=== PATIENT | female | born 1945 | race Caucasian/White ===

== ENCOUNTER 2019-02-11 05:03 | Inpatient (IN) | payer MEDICARE, BC ==
[2019-02-04 14:59] LABS: BASOPHILS % (AUTO) 0.8 % (0-1); EOSINOPHILS # (AUTO) 0.1 X10'3 (0-0.9); EOSINOPHILS % (AUTO) 1.9 % (0-6); LYMPHOCYTES # (AUTO) 1.6 X10'3 (1.1-4.8); LYMPHOCYTES % (AUTO) 36.7 % (21-51); MEAN CORPUSCULAR HEMOGLOBIN 31.3 PG (27.0-31.0); MEAN CORPUSCULAR VOLUME 91.9 FL (78-98); MEAN PLATELET VOLUME 7.9 FL (7.4-10.4); MONOCYTES # (AUTO) 0.4 X10'3 (0-0.9); NEUTROPHILS # (AUTO) 2.3 X10'3 (1.8-7.7); NEUTROPHILS % (AUTO) 52.6 % (42-75); PRE OP PLATELET COUNT 186 X10'3 (140-440); RED BLOOD COUNT 4.46 X10'6 (4.20-5.60)
[2019-02-04 15:17] LABS: ALBUMIN/GLOBULIN RATIO 1.3 (1.1-1.5); ALKALINE PHOSPHATASE 64 IU/L (46-116); BLOOD UREA NITROGEN 21 MG/DL (7-18); BUN/CREATININE RATIO 26.9 (6.6-38.0); CALCIUM 9.6 MG/DL (8.5-10.1); CHLORIDE 103 MMOL/L (99-107); CREATININE 0.78 MG/DL (0.40-0.90); PRE OP ALT 29 U/L (30-65); PRE OP ANION GAP 10 (8-16); PRE OP AST 23 U/L (10-37); PRE OP BILIRUB, TOTAL 0.6 MG/DL (0.0-1.0); PRE OP GLUCOSE 89 MG/DL (70-104); PRE OP POTASSIUM 4.2 MMOL/L (3.4-5.1); PRE OP SODIUM 142 MMOL/L (135-145); TOTAL CARBON DIOXIDE 29.2 MMOL/L (24-32); TOTAL PROTEIN 7.1 G/DL (6.4-8.2); eGFR 73 ML/MIN
[2019-02-11] VITALS (20 sets, daily range): BP systolic 84–123; BP diastolic 44–73
[~2019-02-11] VITALS: Ht 170.2 cm; Wt 88.2 kg
[~2019-02-11 05:03] MED LIST: CELE200C PO; KEN0.1O TP; MULT1TAB74 PO; PREVCR VG; TRAM50TA2 PO; TURMERIC; [UNRECOGNIZED DRUG - OTHER]
[2019-02-11] MEDS ORDERED: famotidine 20mg tablet PO ONE (05:30)
[2019-02-11] MEDS ORDERED: vancomycin inj 1,500 MG in normal saline 300ml IV soln IV ONE (05:30)
[2019-02-11] MEDS ORDERED: tranexamic acid inj. 1,000 MG in normal saline 100 ML IV ONE (05:30)
[2019-02-11] MEDS ORDERED: cefazolin/dext.iso 2gm/100ml 100 ML IV ONE (05:30)
[2019-02-11] MEDS ORDERED: acetaminophen 325mg tablet PO ONE (05:30)
[2019-02-11] MEDS ORDERED: celeCOXIB 100mg capsule PO ONE (05:30)
[2019-02-11] MEDS ORDERED: oxyCODONE SR 10mg (sust. release) tab -2 tabs (20mg) PO ONE (05:30)
[2019-02-11] MEDS ORDERED: gabapentin 300mg capsule PO ONE (05:30)
[2019-02-11] MEDS ORDERED: metoclopramide 5 mg/ml inj IV ONE (05:30)
[2019-02-11] MEDS ORDERED: LIDOcaine 1% (10mg/ml) 2ml vial ONE (05:47)
[2019-02-11] MEDS: ringers solution, lacted 1,000 ML IV SCH ×3 (06:06→13:26)
[2019-02-11] MEDS ORDERED: oxyCODONE/APAP 10/325mg tablet PO PRN (06:20)
[2019-02-11] MEDS ORDERED: magnesium hydroxide 30ml (MOM) UD suspension PO PRN (06:20)
[2019-02-11] MEDS ORDERED: bisacodyl 10mg suppository rectal RC PRN (06:20)
[2019-02-11] MEDS ORDERED: HYDROmorphone inj. 0.5 MG/0.5 ML DISP.SYRIN IV PRN (06:20)
[2019-02-11] MEDS ORDERED: tranexamic acid inj. 880 MG in normal saline 100ml IV soln 100 ML IV ONE (06:20)
[2019-02-11] MEDS ORDERED: acetaminophen 325mg tablet PO PRN (06:20)
[2019-02-11] MEDS ORDERED: diphenhydrAMINE 25mg capsule PO PRN ×2 (06:20)
[2019-02-11] MEDS ORDERED: tetracaine 1% (10mg/ml) pres. free inj. ONE (07:49)
[2019-02-11] MEDS ORDERED: MIDAZolam 1mg/ml 10ml vial ONE (07:51)
[2019-02-11] MEDS: gabapentin 300mg capsule PO SCH ×3 (08:00→20:36)
[2019-02-11] MEDS ORDERED: propofol inj 20 ML IV ONE (08:23)
[2019-02-11] MEDS ORDERED: ketorolac trometh. 30mg/ml inj. ONE ×2 (08:33→08:55)
[2019-02-11] MEDS ORDERED: vancomycin 1,000mg inj ONE (08:33)
[2019-02-11] MEDS ORDERED: epiNEPHrine 1 mg/ml inj ONE ×2 (08:33→08:56)
[2019-02-11] MEDS ORDERED: cloNIDine hcl/PF 100mcg/ml inj ONE ×2 (08:33→08:56)
[2019-02-11] MEDS ORDERED: ROPIVAcaine 0.5% (5mg/ml) 30ml vial ONE ×3 (08:34→09:25)
[2019-02-11] MEDS ORDERED: morphine 4 MG/ML inj SYRINge IV PRN ×2 (08:45)
[2019-02-11] MEDS ORDERED: ringers solution, lacted 1,000 ML IV SCH (08:45)
[2019-02-11] MEDS ORDERED: proCHLORperazine 10 MG/2 ml inj IV PRN (08:45)
[2019-02-11] MEDS ORDERED: meperidine/PF 25mg/ml syringe IV PRN ×3 (08:45)
[2019-02-11] MEDS ORDERED: ondansetron/PF 4mg/2ml inj IV PRN (08:45)
--- NOTE | 2019-02-11 09:50 | NUR ---
Received from OR via , accompanied by Anesthesiologist OSWALDO and report given by Anesthesiolgist. AWAKE VS WNL, NO CO PAIN, DSG DI, HAS KNEE WRAP ON AND TEJ DSG, (BOX NOT TUCKED INTO WRAP), HAS ON-Q PUMP, FOOT WARM WITH GOOD PEDAL PULSES, SCDS ON, ELIZABETH SECURE WITH CLEAR YELLOW URINE. BEGINING TO MOVE BLE.
[2019-02-11] MEDS: ROPIVAcaine 0.2%/PF PUMP/bolus 550 ML ADDCANAL SCH ×2 (11:17→20:44)
--- NOTE | 2019-02-11 11:30 | NUR ---
Report called to receiving nurse. Transferred via BED Belongings . Special Issues communicated to receiving nurse.AWAKE VS WNL, NO CO PAIN, ON-Q PUMP ON 2ML, BEGINING TO MOVE BLE, PEDAL PULSE GOOD, ELIZABETH QS CLEAR YELLOW, TEJ DSG DI, XRAY DONE, TO ROOM
[2019-02-11] MEDS: potassium cl 20mEq in 1/2 NS 1,000 ML IV SCH ×2 (13:12→14:20)
[2019-02-11] MEDS: multivitamins, therapeutics tablet PO SCH (13:20)
[2019-02-11] MEDS: ascorbic acid 500mg tablet PO SCH ×2 (13:21→20:35)
[2019-02-11] MEDS: aspirin 325mg tablet PO SCH (13:21)
[2019-02-11] MEDS: cefazolin/dext.iso 2gm/100ml 100 ML IV SCH (15:45)
--- NOTE | 2019-02-11 18:22 | NUR ---
Problems reprioritized. Patient report given, questions answered & plan of care reviewed with SARAH James.
[2019-02-11] MEDS: ondansetron/PF 4mg/2ml inj IV PRN (20:35)
[2019-02-11] MEDS: HYDROmorphone 1 mg/ml syringe IV PRN (20:35)
[2019-02-11] MEDS: sennosides 8.6mg tablet PO SCH (20:35)
[2019-02-11] MEDS: ROPIVAcaine 0.2% (10 MG/5 ML) BOLUS INJECTION ADDCANAL PRN (20:44)
[2019-02-12] MEDS: cefazolin/dext.iso 2gm/100ml 100 ML IV SCH (00:07)
[2019-02-12] MEDS: potassium cl 20mEq in 1/2 NS 1,000 ML IV SCH ×4 (00:09→21:59)
[2019-02-12] MEDS: HYDROmorphone 1 mg/ml syringe IV PRN (00:09)
[2019-02-12] MEDS: ROPIVAcaine 0.2%/PF PUMP/bolus 550 ML ADDCANAL SCH ×2 (00:20→04:45)
[2019-02-12] MEDS: ROPIVAcaine 0.2% (10 MG/5 ML) BOLUS INJECTION ADDCANAL PRN ×2 (00:20→04:45)
[2019-02-12 02:00] VITALS: BP 126/66
[2019-02-12] MEDS: oxyCODONE/APAP 10/325mg tablet PO PRN ×4 (04:36→21:48)
[2019-02-12] MEDS: ringers solution, lacted 1,000 ML IV SCH (05:53)
[2019-02-12 06:00] VITALS: BP 109/48
--- NOTE | 2019-02-12 06:25 | NUR ---
received report from bo hodges
[2019-02-12 06:29] LABS: BASOPHILS % (AUTO) 0.6 % (0-1); EOSINOPHILS # (AUTO) 0.1 X10'3 (0-0.9); EOSINOPHILS % (AUTO) 2.9 % (0-6); HEMATOCRIT 33.4 % (35.0-45.0); HEMOGLOBIN 11.5 g/dl (12.0-16.0); LYMPHOCYTES % (AUTO) 24.4 % (21-51); MEAN CORPUSCULAR HEMOGLOBIN 31.6 PG (27.0-31.0); MEAN CORPUSCULAR HGB CONC 34.3 g/dL (33.0-36.5); MEAN CORPUSCULAR VOLUME 92.1 FL (78-98); MEAN PLATELET VOLUME 8.1 FL (7.4-10.4); MONOCYTES # (AUTO) 0.4 X10'3 (0-0.9); MONOCYTES % (AUTO) 9.7 % (2-12); NEUTROPHILS # (AUTO) 2.6 X10'3 (1.8-7.7); NEUTROPHILS % (AUTO) 62.4 % (42-75); PLATELET COUNT 149 X10'3 (140-440); RED BLOOD COUNT 3.63 X10'6 (4.20-5.60); RED CELL DISTRIBUTION WIDTH 13.5 % (11.5-14.5); WHITE BLOOD COUNT 4.1 X10'3 (4.5-11.0)
--- NOTE | 2019-02-12 06:42 | NUR ---
Patient in room [facility] 4015. I have received report from Carol Vera RN and had the opportunity to ask questions and assume patient care.
--- NOTE | 2019-02-12 06:43 | NUR ---
REPORT GIVEN TO SARAH ARSHAD.
[2019-02-12 07:40] LABS: ANION GAP 8 (8-16); CHLORIDE 107 MMOL/L (99-107); POTASSIUM 4.2 MMOL/L (3.5-5.1); SODIUM 141 MMOL/L (135-145); TOTAL CARBON DIOXIDE 25.7 MMOL/L (24-32)
[2019-02-12] MEDS: multivitamins, therapeutics tablet PO SCH (07:53)
[2019-02-12] MEDS: gabapentin 300mg capsule PO SCH ×3 (07:53→21:58)
[2019-02-12] MEDS: ascorbic acid 500mg tablet PO SCH ×2 (07:53→21:45)
[2019-02-12] MEDS: aspirin 325mg tablet PO SCH (07:54)
[2019-02-12 10:00] VITALS: BP 108/54
[2019-02-12 14:00] VITALS: BP 120/64
--- NOTE | 2019-02-12 16:05 | NUR ---
Pt s/p surgery to her right knee seen at bedside with daughter present and provided with written and verbal protein education with RD contact information. Pt endorses a good appetite and reports about 80-85% PO intake on regular diet meeting nutrient needs. Pt denies additional protein at this time. Pt denies food allergies or difficulty chewing/swallowing. LBM 02/10, pt reports she took prune juice today and denies any additional nutrition therapy at this time. Will continue to follow. Addendum: 02/12/19 at [address] Amended: Links added.
[2019-02-12 18:00] VITALS: BP 107/51
--- NOTE | 2019-02-12 18:32 | NUR ---
gave report to bo mosqueda
[2019-02-12] MEDS: celeCOXIB 100mg capsule PO SCH (21:45)
[2019-02-12] MEDS: sennosides 8.6mg tablet PO SCH (21:45)
[2019-02-12 22:00] VITALS: BP 131/63
[2019-02-13] MEDS: ondansetron/PF 4mg/2ml inj IV PRN (01:52)
[2019-02-13] MEDS: oxyCODONE/APAP 10/325mg tablet PO PRN ×3 (04:09→13:44)
[2019-02-13 05:56] LABS: BASOPHILS % (AUTO) 0.3 % (0-1); EOSINOPHILS % (AUTO) 0.8 % (0-6); HEMATOCRIT 33.2 % (35.0-45.0); HEMOGLOBIN 11.4 g/dl (12.0-16.0); LYMPHOCYTES # (AUTO) 0.8 X10'3 (1.1-4.8); LYMPHOCYTES % (AUTO) 14.1 % (21-51); MEAN CORPUSCULAR HEMOGLOBIN 31.3 PG (27.0-31.0); MEAN CORPUSCULAR HGB CONC 34.4 g/dL (33.0-36.5); MEAN CORPUSCULAR VOLUME 90.8 FL (78-98); MEAN PLATELET VOLUME 8.2 FL (7.4-10.4); MONOCYTES # (AUTO) 0.5 X10'3 (0-0.9); MONOCYTES % (AUTO) 9.1 % (2-12); NEUTROPHILS # (AUTO) 4.1 X10'3 (1.8-7.7); NEUTROPHILS % (AUTO) 75.7 % (42-75); PLATELET COUNT 157 X10'3 (140-440); RED BLOOD COUNT 3.66 X10'6 (4.20-5.60); RED CELL DISTRIBUTION WIDTH 13.4 % (11.5-14.5); WHITE BLOOD COUNT 5.4 X10'3 (4.5-11.0)
[2019-02-13 06:00] VITALS: BP 119/59
--- NOTE | 2019-02-13 06:00 | NUR ---
Patient in room [facility] 4015. I have received report from HAYLIE SMITH and had the opportunity to ask questions and assume patient care.
[2019-02-13] MEDS ORDERED: oxyCODONE/APAP 10/325mg tablet PO PRN (08:00)
[2019-02-13] MEDS: aspirin 325mg tablet PO SCH (08:33)
[2019-02-13] MEDS: celeCOXIB 100mg capsule PO SCH (08:34)
[2019-02-13] MEDS: ascorbic acid 500mg tablet PO SCH (08:34)
[2019-02-13] MEDS: gabapentin 300mg capsule PO SCH ×2 (08:34→13:44)
[2019-02-13] MEDS: multivitamins, therapeutics tablet PO SCH (08:34)
[2019-02-13] MEDS: ROPIVAcaine 0.2%/PF PUMP/bolus 550 ML ADDCANAL SCH (08:36)
--- NOTE | 2019-02-13 08:41 | NUR ---
PAtient self administered on-q bolus
[2019-02-13 10:00] VITALS: BP 135/54
--- NOTE | 2019-02-13 11:53 | NUR ---
PAtient self administered on-q bolus
--- NOTE | 2019-02-13 14:30 | NUR ---
PATIENT DISCHARGED SAFELY HOME WITH DAUGHTER. ALL BELONGINGS IN POSSESSION. PATIENT VERBALIZES UNDERSTANDING OF ALL DC INSTRUCTIONS.
== END 2019-02-13 14:30 | disposition home or self-care (01) | DRG 470 ==
LOC: PAS 05:03 → ORTHO 4S 06:20 → EDSTATUS 09:15
PROVIDERS: ADMIT Orthopaedic Surgery; ATTEND Orthopaedic Surgery
PROC: 0SRC0J9 Replacement of Right Knee Joint with Synthetic Substitute, Cemented, Open Approach (ICD-10-PCS; principal; 2019-02-11 07:44)
DX: M17.11 Unilateral primary osteoarthritis, right knee (principal); D62 Acute posthemorrhagic anemia
CPT/HCPCS: 36415; 73560; 80051; 80053; 82948; 85025; 86870; 86885; 86900; 86901; 87081; 97110; 97116; 97162; 97530; A4215; A6454; A7000; C1713; C1758; C1776; G0378; J0171; J0735; J1170; J1885; J2001; J2250; J2405; J2704; J2765; J2795; J3370; J3480; J7120; Q0163

== ENCOUNTER 2019-02-17 20:48 | Emergency (ER) | payer MEDICARE, BC ==
[~2019-02-17] VITALS: Ht 172.7 cm; Wt 72.0 kg
[~2019-02-17 20:48] MED LIST changes: -TRAM50TA2 PO
[2019-02-17 20:54] VITALS: BP 138/84
[2019-02-17] MEDS ORDERED: bisacodyl 10mg suppository rectal RC STA (21:16)
[2019-02-17] MEDS ORDERED: POLY17PO10 PO (22:06)
[2019-02-17] MEDS ORDERED: metoclopramide 5 mg/ml inj IM ONE (22:10)
[2019-02-17] MEDS ORDERED: normal saline 1000ML IV soln IVB ONE (22:30)
[2019-02-17] MEDS ORDERED: metoclopramide 5 mg/ml inj IV ONE (22:30)
[2019-02-17 22:50] LABS: HEMOGLOBIN 13.3 g/dl (12.0-16.0); RED BLOOD COUNT 4.28 X10'6 (4.20-5.60)
[2019-02-17 22:51] LABS: BASOPHILS # (AUTO) 0.1 X10'3 (0-0.2); BASOPHILS % (AUTO) 0.5 % (0-1); EOSINOPHILS % (AUTO) 0 % (0-6); HEMATOCRIT 38.7 % (35.0-45.0); LYMPHOCYTES % (AUTO) 9.5 % (21-51); MEAN CORPUSCULAR HGB CONC 34.3 g/dL (33.0-36.5); MEAN CORPUSCULAR VOLUME 90.4 FL (78-98); MEAN PLATELET VOLUME 7.4 FL (7.4-10.4); MONOCYTES # (AUTO) 0.7 X10'3 (0-0.9); MONOCYTES % (AUTO) 6.4 % (2-12); NEUTROPHILS # (AUTO) 8.6 X10'3 (1.8-7.7); NEUTROPHILS % (AUTO) 83.6 % (42-75); PLATELET COUNT 247 X10'3 (140-440); RED CELL DISTRIBUTION WIDTH 13.6 % (11.5-14.5); WHITE BLOOD COUNT 10.3 X10'3 (4.5-11.0)
[2019-02-17 23:01] LABS: ALANINE AMINOTRANSFERASE 55 U/L (12-78); ALBUMIN/GLOBULIN RATIO 0.8 (1.1-1.5); ALKALINE PHOSPHATASE 94 IU/L (46-116); ANION GAP 5 (8-16); ASPARTATE AMINO TRANSFERASE 45 U/L (10-37); BILIRUBIN,TOTAL 0.4 MG/DL (0.1-1.0); BLOOD UREA NITROGEN 9 MG/DL (7-18); BUN/CREATININE RATIO 11.8 (6.6-38.0); CALCIUM 8.4 MG/DL (8.5-10.1); CHLORIDE 101 MMOL/L (99-107); CREATININE 0.76 MG/DL (0.40-0.90); GLUCOSE 123 MG/DL (70-104); LIPASE 52 U/L (73-393); POTASSIUM 3.7 MMOL/L (3.5-5.1); SODIUM 138 MMOL/L (135-145); TOTAL CARBON DIOXIDE 32.2 MMOL/L (24-32); TOTAL PROTEIN 6.7 G/DL (6.4-8.2); eGFR 75 ML/MIN
[2019-02-17] MEDS ORDERED: methylnaltrexone br 12mg/0.6ml inj***SubQ only SQ ONE (23:20)
[2019-02-17] MEDS ORDERED: PROC25SU31 RC (23:29)
[2019-02-17] MEDS ORDERED: METR-159 PO (23:29)
[2019-02-17] MEDS ORDERED: CIPR-230 PO (23:29)
== END 2019-02-18 00:06 | disposition home or self-care (01) ==
LOC: ER 20:49
DX: R10.84 Generalized abdominal pain (principal); R11.10 Vomiting, unspecified; K59.00 Constipation, unspecified; R50.9 Fever, unspecified; Z79.899 Other long term (current) drug therapy; Z96.651 Presence of right artificial knee joint
CPT/HCPCS: 36415; 74176; 80053; 83690; 85025; 96360; 96372; 99284; J2212; J2765; J7030

== ENCOUNTER 2022-12-10 12:05 | Emergency (ER) | payer MEDICARE, BC ==
[~2022-12-10] VITALS: Ht 170.2 cm; Wt 81.4 kg
[~2022-12-10 12:05] MED LIST changes: +MULT-620 PO; -MULT1TAB74 PO
[2022-12-10 13:11] VITALS: BP 130/81; PULSE 78; TEMP 97.8; O2SAT 98
[2022-12-10 13:58] VITALS: RESP 16
[2022-12-10] MEDS ORDERED: normal saline 1000ml 1,000 ML IV SCH (14:35)
[2022-12-10 15:04] LABS: BASOPHILS % (AUTO) 0.4 % (0-1); HEMATOCRIT 43.4 % (35.0-45.0); HEMOGLOBIN 14.5 g/dl (12.0-16.0); LYMPHOCYTES # (AUTO) 1.4 X10'3 (1.1-4.8); LYMPHOCYTES % (AUTO) 29.8 % (21-51); MEAN CORPUSCULAR HEMOGLOBIN 31.3 PG (27.0-31.0); MEAN CORPUSCULAR HGB CONC 33.4 g/dL (33.0-36.5); MEAN CORPUSCULAR VOLUME 93.8 FL (78-98); MEAN PLATELET VOLUME 7.7 FL (7.4-10.4); MONOCYTES # (AUTO) 0.3 X10'3 (0-0.9); MONOCYTES % (AUTO) 6.9 % (2-12); NEUTROPHILS % (AUTO) 61.9 % (42-75); PLATELET COUNT 192 X10'3 (140-440); RED BLOOD COUNT 4.63 X10'6 (4.20-5.60); RED CELL DISTRIBUTION WIDTH 13.3 % (11.5-14.5); WHITE BLOOD COUNT 4.8 X10'3 (4.5-11.0)
[2022-12-10 15:20] LABS: ALANINE AMINOTRANSFERASE 39 U/L (12-78); ALBUMIN 4.1 G/DL (3.4-5.0); ALBUMIN/GLOBULIN RATIO 1.3 (1.1-1.5); ALKALINE PHOSPHATASE 61 IU/L (46-116); ANION GAP 5 (8-16); ASPARTATE AMINO TRANSFERASE 33 U/L (10-37); BILIRUBIN,TOTAL 0.5 MG/DL (0.1-1.0); BLOOD UREA NITROGEN 9 MG/DL (7-18); BUN/CREATININE RATIO 11.5 (10.0-20.0); CALCIUM 9.4 MG/DL (8.5-10.1); CHLORIDE 104 MMOL/L (99-107); CREATININE 0.78 MG/DL (0.40-0.90); GLUCOSE 93 MG/DL (70-104); POTASSIUM 3.8 MMOL/L (3.5-5.1); SODIUM 137 MMOL/L (135-145); TOTAL CARBON DIOXIDE 28.3 MMOL/L (24-32); TOTAL PROTEIN 7.3 G/DL (6.4-8.2); eCRCL 60 ML/MIN; eGFR 72 ML/MIN
[2022-12-10] MEDS ORDERED: iohexol 300mg/ml 100ml inj. ONE (15:35)
--- NOTE | 2022-12-10 17:42 | NUR ---
TELEPHONIC NURSE CASE MANAGER ASSESSMENT REVIEWED BY ABILIO RN AND APPROVED Addendum: 12/10/22 at 1743 by DANA SEE PROVIDER NOTES FOR DETAILED ASSESSMENT
== END 2022-12-10 18:22 | disposition home or self-care (01) ==
LOC: ER 12:06
DX: R13.10 Dysphagia, unspecified (principal); Z79.2 Long term (current) use of antibiotics; Z79.899 Other long term (current) drug therapy
CPT/HCPCS: 36415; 71260; 80053; 85025; 96360; 96361; 99285; J3490; J7030; Q9967